=== PATIENT | male | born 1970 | race Caucasian/White ===

== ENCOUNTER → 2021-01-28 | Outpatient (CLI) | payer MEDICARE, OTHER ==
[2021-01-29 08:14] LABS: RHEUMATOID ARTHRITIS FACTOR <10.0 IU/mL (0.0-13.9)
[2021-01-29 10:15] LABS: HBSAG SCREEN Negative (Negative); HEP B CORE AB, TOT Negative (Negative)
[2021-01-29 23:11] LABS: CCP ANTIBODIES IGG/IGA 7 units (0-19)
[2021-02-02 07:12] LABS: HCV AB 1.6 (0.0-0.9); HCV RNA NAA QUALITATIVE Negative (Negative)
== END ==
LOC: LAB 10:58
PROVIDERS: Nurse Practitioner Family
DX: M19.041 Primary osteoarthritis, right hand (principal); M19.042 Primary osteoarthritis, left hand; M79.643 Pain in unspecified hand; M25.50 Pain in unspecified joint; R53.83 Other fatigue; R76.8 Other specified abnormal immunological findings in serum; M10.9 Gout, unspecified; Z11.59 Encounter for screening for other viral diseases; D89.9 Disorder involving the immune mechanism, unspecified; M92.62 Juvenile osteochondrosis of tarsus, left ankle
CPT/HCPCS: 36415; 73130; 73630; 82550; 83520; 84550; 85652; 86140; 86200; 86431; 86704; 86803; 87340

== ENCOUNTER → 2021-03-29 | Outpatient (CLI) | payer MEDICARE, OTHER | LOC: US 03-24 10:00 | DX: M34.1 CR(E)ST syndrome (principal); R11.0 Nausea; M06.9 Rheumatoid arthritis, unspecified; K76.0 Fatty (change of) liver, not elsewhere classified | CPT/HCPCS: 76705 ==

== ENCOUNTER → 2021-07-07 | Outpatient (CLI) | payer MEDICARE, OTHER | LOC: HEART 5 14:57 | DX: R06.00 Dyspnea, unspecified (principal); M34.1 CR(E)ST syndrome | CPT/HCPCS: 94060; 94729 ==

== ENCOUNTER → 2021-07-21 | Outpatient (CLI) | payer MEDICARE, OTHER | LOC: CT 10:10 → ECHO 11:00 | DX: M34.1 CR(E)ST syndrome (principal); R06.00 Dyspnea, unspecified; R91.8 Other nonspecific abnormal finding of lung field; I34.0 Nonrheumatic mitral (valve) insufficiency | CPT/HCPCS: ECHO; 71250; 93306 ==